=== PATIENT | female | born 1930 | race Caucasian/White ===

== ENCOUNTER 2020-01-15 13:32 | Inpatient (IN) | payer OTHER, BC ==
[~2020-01-15] VITALS: Ht 157.5 cm; Wt 84.0 kg
[~2020-01-15 13:32] MED LIST: ADVAIR 100/501 EA INH; AMLODIPINE BES2.5 MG PO; BLOOD PRESSURE; CITALOPRAM HYDR40 MG PO; DIOVAN80 M1 PO; GABAPENTIN300 M1 PO; LOPRESSOR50 MG PO; PREDNISONE20 MG PO; [UNRECOGNIZED DRUG - OTHER] PO
[2020-01-15 13:57] VITALS: BP 159/105
[2020-01-15 14:32] LABS: BASO # 0.1 10*3/uL (0.0-0.1); BASO % 0.8 % (0.0-1.0); EOS # 0.1 10*3/uL (0.0-0.4); EOS % 0.4 % (1.0-4.0); HEMATOCRIT 43.4 % (37.0-47.0); LYMPH # 1.2 10*3/uL (1.3-4.4); LYMPH % 10.2 % (27.0-41.0); MEAN CELL VOLUME 91.4 fl (81.0-99.0); MEAN CORPUSCULAR HGB 29.9 pg (27.0-31.0); MEAN CORPUSCULAR HGB CONC 32.7 g/dl (33.0-37.0); MEAN PLATELET VOLUME 9.9 fl (9.6-12.3); MONO # 0.7 10*3/uL (0.1-1.0); MONO % 5.9 % (3.0-9.0); NEUT # 9.8 10*3/uL (2.3-7.9); NEUT % 82.2 % (47.0-73.0); PLATELET COUNT AUTOMATED 312 10*3/uL (130-400); RED BLOOD COUNT 4.75 10*6/uL (4.10-5.10); RED CELL DISTRI WIDTH 13.1 % (0-14.5); WHITE BLOOD COUNT 11.9 10*3/uL (4.8-10.8)
[2020-01-15 14:42] LABS: ACT PARTIAL THROMBO TIME 28.2 SECONDS (20.0-32.1)
[2020-01-15 14:51] LABS: ALBUMIN 3.5 gm/dl (3.1-4.5); CREATININE 1.23 mg/dL (0.55-1.02); POTASSIUM 3.5 mmol/L (3.5-5.1); TOTAL PROTEIN 7.8 gm/dL (6.4-8.2)
[2020-01-15 15:10] LABS: BILIRUBIN NEGATIVE (NEGATIVE); BLOOD 3+ (NEGATIVE); CLARITY SL CLOUDY (CLEAR); COLOR YELLOW (YELLOW); GLUCOSE NEGATIVE (NEGATIVE); KETONE 3+ (NEGATIVE); LEUKO ESTERASE NEGATIVE (NEGATIVE); NITRITE NEGATIVE (NEGATIVE); UROBILINOGEN 0.2 E.U./dl (0.2-1.0)
[2020-01-15 15:20] LABS: BACTERIA 2+; MUCOUS TRACE
[2020-01-15 16:46] VITALS: BP 163/79
[2020-01-15 17:52] VITALS: BP 147/105
--- NOTE | 2020-01-15 17:52 | NUR ---
SPOKE WITH PTS DAUGHTER RACHEL TWICE TO GIVE HER UPDATES.PT IS ON PHONE WITH HER NOW.AWAITING CT RESULTS.---ANKIT RUIZ RN
--- NOTE | 2020-01-15 17:57 | NUR ---
PT LEIF SEAY PHONE NUMBER
[2020-01-15 18:32] VITALS: BP 139/88
--- NOTE | 2020-01-15 18:32 | NUR ---
PT RESTING QUIETLY--ANKIT RUIZ RN
[2020-01-15 19:53] VITALS: BP 158/96
--- NOTE | 2020-01-15 19:53 | NUR ---
A 89, admitted to 5E, under the services of AFSHAN Walker DO with a diagnosis of NEW ONSET AFIB,RECURRENT HERNIA. Chief complaint is ABDOMINAL PAIN. Patient arrived via bed from ER. Monitor applied. Initial assessment completed. Vital signs taken and recorded. DR. HAYES notified of admission to the unit. Orders received. See assessment for past medical history, medications and allergies. Patient and/or family oriented to [facility]. visitation policy reviewed. Clothing/patient valuable form completed. EMILY STALLINGS RN
[2020-01-15] MEDS ORDERED: COZAAR50 M1 PO (20:04)
[2020-01-15] MEDS ORDERED: WIXELA 100-501 EACH INH (20:05)
[2020-01-15] MEDS ORDERED: PROVENTIL HFA6.7 GM INH (20:06)
--- NOTE | 2020-01-15 20:07 | NUR ---
MED REC UPDATED PER PT'S MEDICATIONS SHE BROUGHT FROM HOME.
--- NOTE | 2020-01-15 20:34 | NUR ---
DR. HARRISON NOTIFIED AT THIS TIME OF CONSULT STATED THAT HE HAD BEEN NOTIFIED BY ER AND THAT HE WOULD SEE HER IN THE MORNING.
--- NOTE | 2020-01-15 21:36 | NUR ---
DR. AQUINO'S ANSWERING SERVICE NOTIFIED AT THIS TIME OF CONSULT.
--- NOTE | 2020-01-15 22:26 | NUR ---
PATIENT DAUGHTER RACHEL CALLED AT THIS TIME AND UPDATED ON PATIENT CONDITION AND PHYSICIAN CONSULTS. ALL QUESTIONS ANSWERED TO HER SATISFACTION.
[2020-01-16] VITALS (13 sets, daily range): BP systolic 129–165; BP diastolic 61–125
--- NOTE | 2020-01-16 02:21 | NUR ---
24 HOUR CHART CHECK COMPLETE
--- NOTE | 2020-01-16 05:15 | NUR ---
ORDERED IV ANTIBIOTIC STARTED AT THIS TIME INLINE WITH RUNNING IV FLUIDS. PATIENT RESTING IN BED IN A POSITION OF COMFORT, WITH EYES CLOSED AT THIS TIME AND RESPIRATIONS ARE EASY AND NON-LABORED. CALL LIGHT WITHIN REACH, WILL CONTINUE TO MONITOR.
[2020-01-16 06:14] LABS: BASO # 0.1 10*3/uL (0.0-0.1); BASO % 0.5 % (0.0-1.0); EOS % 0.1 % (1.0-4.0); HEMATOCRIT 39.1 % (37.0-47.0); LYMPH # 1.3 10*3/uL (1.3-4.4); LYMPH % 11.5 % (27.0-41.0); MEAN CELL VOLUME 89.9 fl (81.0-99.0); MEAN CORPUSCULAR HGB 29.7 pg (27.0-31.0); MEAN PLATELET VOLUME 10.5 fl (9.6-12.3); MONO # 0.6 10*3/uL (0.1-1.0); MONO % 5.3 % (3.0-9.0); NEUT # 9.6 10*3/uL (2.3-7.9); NEUT % 81.9 % (47.0-73.0); PLATELET COUNT AUTOMATED 292 10*3/uL (130-400); RED BLOOD COUNT 4.35 10*6/uL (4.10-5.10); WHITE BLOOD COUNT 11.7 10*3/uL (4.8-10.8)
[2020-01-16 06:23] LABS: BUN 19 mg/dl (7-24); CHLORIDE 106 mmol/L (98-107); CHOLESTEROL 157 mg/dL (<200); CREATININE 0.96 mg/dL (0.55-1.02); POTASSIUM 2.9 mmol/L (3.5-5.1); SODIUM 140 mmol/L (136-145); TRIGLYCERIDES 68 mg/dl (<150); VLDL CHOLESTEROL 14 mg/dL (6-40)
[2020-01-16 06:33] LABS: HDL CHOLESTEROL 36 mg/dl (40-60); LDL CHOLESTEROL 107 mg/dL (9-159)
[2020-01-16 07:20] LABS: VITAMIN D, 25-HYDROXY 26.7 ng/mL (30-100)
--- NOTE | 2020-01-16 08:34 | NUR ---
PHYSICAL THERAPY Screen received pt admitted from home with Afib w RVR, abdominal pain with recurrent abdominal hernia with obstruction. Pt currently has surgical consult. Please consult PT as medically appropriate pending surgical input and if pt has a decline in functional status. Lmaar Tapia PT
--- NOTE | 2020-01-16 08:34 | NUR ---
Nursing screen received and chart reviewed. Patient admitted for abdominal pain, new onset A-fib, and recurrent hernia. If patient has a decline in ADLs, transfers, or mobility, please send OT orders. Thank you. Margaret Lewis OTR/L
--- NOTE | 2020-01-16 10:22 | NUR ---
PT OFF FLOOR TO SURGERY. PT'S SON AND DAUGHTER AWARE OF SURGICAL PLAN.
--- NOTE | 2020-01-16 12:14 | NUR ---
Cigar Maker in to talk to patient. Patient states lives at HOME with DAUGHTER. There are FEW steps in the home. Physician: LORRAINE [facility]acy: [facility] Home health services: NONE Patient's level of ADLs: INDEPENDENT Patient has working utilities: YES DME: [facility] Follow-up physician's appointment after d/c: WILL BE MADE BY [facility] NURSE DIRECTOR ON DISCHARGE Does patient want to access PORTAL?: NO Discharge plan PT LIVES AT HOME WITH HER DAUGHTER. TALKED WITH PT ABOUT SNF OR HOME HEALTH ON DISCHARGE. PT IS HAVING SURGERY TODAY AND WANTS TO WAIT AND SEE IF SHE WILL NEED ANYTHING ON DISCHARGE. WILL REVISIT AFTER SURGERY. STATES HER DAUGHTER WILL TAKE HER HOME. WILL CONTINUE TO FOLLOW.. VIKY HARRIS
--- NOTE | 2020-01-16 13:55 | NUR ---
JAYCEE BUSH TO UNIT, REPORT RECEIVED FROM SURGERY.
--- NOTE | 2020-01-16 14:10 | NUR ---
PT. INSTRUCTED ON I/S FOR PURPOSE AND BENEFITS. PT. ACHIEVED A VOLUME OF 1500. Q 1 HOUR USE GIVEN AND TO TAKE HOME UPON DISCHARGE. PT HAS NO QUESTIONS AT THIS TIME.
--- NOTE | 2020-01-16 20:15 | NUR ---
PATIENT ASSESSMENT COMPLETED AT THIS TIME WITHOUT INCIDENT, PATIENT DENIES ANY CHEST PAIN/PRESSURE, SHORTNESS OF BREATH, OR OTHER DISTRESS AT THIS TIME. PATIENT REMAINS ON NC 2LPM AT THIS TIME FOLLOWING SURGERY EARLIER TODAY. INCENTIVE SPIROMETER EXPLAINED TO PATIENT AND SHE DEMONSTRATED USE X10 BREATHS FOR 500-750ML, WITH SOME COACHING. LAPROSCOPIC SITES REMAIN INTACT AND WELL APPROXIMATED, PATIENT COMPLAINS OF SOME DISCOMFORT AT THE SITES BUT STATED "IT'S BETTER THAN IT WAS YESTERDAY". WHEN ASKED ABOUT PASSING FLATUS PATIENT STATED THAT SHE REALLY WASN'T PAYING ATTENTION BUT WOULD NOW AND LET THIS RN KNOW. A&O X3 AT THIS TIME, SEATED UP IN RECLINER, CALL LIGHT AT HER SIDE, WILL CONTIUE TO MONITOR.
--- NOTE | 2020-01-16 22:37 | NUR ---
24 HOUR CHART CHECK COMPLETE
[2020-01-17] VITALS: BP 138/67
--- NOTE | 2020-01-17 02:00 | NUR ---
NOTIFIED BY SENIOR RESEARCH EXECUTIVE OF PATIENT HEART RATE GOING OBI INTO THE 40'S AND LOW 34. DR. HAYES NOTIFIED, NO ORDERS RECEIVED AT THIS TIME
--- NOTE | 2020-01-17 03:10 | NUR ---
PATIENT RESTING IN BED IN A POSITION OF COMFORT AT THIS TIME WITH EYES CLOSED, RESPIRATIONS EASY AND NON-LABORED WITH NASAL CANNULA 3LPM IN USE. CALL LIGHT WITHIN REACH, WILL CONTINUE TO MONITOR.
[2020-01-17 06:04] LABS: CREATININE 1.48 mg/dL (0.55-1.02); POTASSIUM 3.8 mmol/L (3.5-5.1)
[2020-01-17 06:17] LABS: HEMATOCRIT 38.5 % (37.0-47.0); MEAN CELL VOLUME 92.1 fl (81.0-99.0); MEAN CORPUSCULAR HGB 29.4 pg (27.0-31.0); MEAN CORPUSCULAR HGB CONC 31.9 g/dl (33.0-37.0); MEAN PLATELET VOLUME 10.5 fl (9.6-12.3); PLATELET COUNT AUTOMATED 303 10*3/uL (130-400); RED BLOOD COUNT 4.18 10*6/uL (4.10-5.10); RED CELL DISTRI WIDTH 13.2 % (0-14.5); WHITE BLOOD COUNT 14.7 10*3/uL (4.8-10.8)
[2020-01-17 06:55] LABS: BURR CELLS FEW; OVALOCYTES FEW; PLATELET SUFFICIENCY NORMAL (NORMAL); TOTAL CELLS COUNTED 100 #CELLS
[2020-01-17 08:00] VITALS: BP 122/58
--- NOTE | 2020-01-17 08:30 | NUR ---
Patient resting quietly with no c/o discomfort. Respirations easy and regular. Vital signs stable. No overt distress. MARIANELA JASSO R
--- NOTE | 2020-01-17 08:31 | NUR ---
DR HARRISON IN TO SEE PT. LAP SITES DRY AND INTACT, OPEN TO AIR.
--- NOTE | 2020-01-17 09:43 | NUR ---
Occupational Therapy evaluation completed on five with full evaluation to follow. Recommend occupational therapy per plan of care and home with HH SN, PT, and OT with family supervision assist upon discharge. Thank you for this referral. Margaret Lewis OTR/L
--- NOTE | 2020-01-17 09:43 | NUR ---
PHYSICAL THERAPY Physical Therapy evaluation completed on 5E with full evaluation to follow. Low complexity PT evaluation per chart review and evaluation, [id number]. Recommend physical therapy per plan of care and Home health upon discharge. Thank you for this referral. Yumiko Myles,PT,DPT
--- NOTE | 2020-01-17 09:52 | NUR ---
DR AQUINO ON UNIT TO SEE PT, NOTIFIED OF HR OF 34 AND SHORT EPISODE OF HR IN 40'S LASTNIGHT.
--- NOTE | 2020-01-17 11:57 | NUR ---
PT STATES SHE IS FEELING GOOD AND WILL RETURN TO HOME WITH HER DAUGHTER ON DISCHARGE. DENIES HOME HEALTH AT THIS TIME.
[2020-01-17 12:00] VITALS: BP 100/42
--- NOTE | 2020-01-17 14:00 | NUR ---
DULCOLAX EFFECTIVE, PT STATES SHE HAD A LARGE BM.
[2020-01-17 16:00] VITALS: BP 100/46
--- NOTE | 2020-01-17 17:30 | NUR ---
Patient resting quietly with no c/o discomfort. Respirations easy and regular. Vital signs stable. No overt distress. MARIANELA JASSO R
[2020-01-17 20:00] VITALS: BP 109/49
[2020-01-18] VITALS: BP 116/58
[2020-01-18 06:23] LABS: BASO # 0.1 10*3/uL (0.0-0.1); BASO % 0.8 % (0.0-1.0); EOS % 0.4 % (1.0-4.0); HEMATOCRIT 35.6 % (37.0-47.0); LYMPH # 2.8 10*3/uL (1.3-4.4); LYMPH % 26.1 % (27.0-41.0); MEAN CELL VOLUME 93.2 fl (81.0-99.0); MEAN CORPUSCULAR HGB 29.3 pg (27.0-31.0); MEAN CORPUSCULAR HGB CONC 31.5 g/dl (33.0-37.0); MEAN PLATELET VOLUME 10.6 fl (9.6-12.3); MONO # 1.5 10*3/uL (0.1-1.0); MONO % 13.6 % (3.0-9.0); NEUT # 6.2 10*3/uL (2.3-7.9); NEUT % 58.3 % (47.0-73.0); PLATELET COUNT AUTOMATED 277 10*3/uL (130-400); RED BLOOD COUNT 3.82 10*6/uL (4.10-5.10); RED CELL DISTRI WIDTH 13.7 % (0-14.5); WHITE BLOOD COUNT 10.7 10*3/uL (4.8-10.8)
[2020-01-18 06:51] LABS: CREATININE 1.79 mg/dL (0.55-1.02); POTASSIUM 3.8 mmol/L (3.5-5.1)
[2020-01-18 08:00] VITALS: BP 120/58
--- NOTE | 2020-01-18 08:30 | NUR ---
Screw Remover in to see patient. She is sitting up in her bedside chair. No new needs or request at this time. Discussed short term SNF and home health care services and she denies a need for either. When medically stable she will be discharged to home.
--- NOTE | 2020-01-18 09:40 | NUR ---
PHYSICAL THERAPY Patient seen this am 1:1 for therapy visit and was sitting up in bedside chair upon therapist arrival. Patient identified by name / and reports abdominal muscle discomfort, secondary to c/o of increased constipation yesterday. OT triage assistant was also present this session for observation only as patient transfers sit to stand from low chair surface SBA. Patient ambulates without AD, SBA, 75'x 1, demonstrating initial "waddling" gait pattern. Patient received v/c to improve B arm swing to promote increased stride and now demonstrated smoother, safer gait pattern. Patient returned to bedside chair with mild fatigue and was very cautious during all 90/180 turns. Patient remained in chair with call light, tray table and telephone. Will continue per POC as tolerated, total treatment time 15 minutes. Willem Bravo, FRUIT SHIPPER
--- NOTE | 2020-01-18 09:44 | NUR ---
OT NOTE Pt was seen this A.M. 1:1 for 24 minute OT session. Upon arrival pt was sitting upright in the recliner. Pt identified by name and and had complaints of lower abdominal "discomfort" with activity. While seated pt doffed and donned B socks PR while bringing her leg up over her knee. Sit to stand then completed from chair level with SBA followed by functional mobility to the bathroom with SBA for safety. There she transferred on/off standard commode with SBA and use of grab bar for UE support. Clothing management completed with supervision. Pt then stood sink side while washing her hands with SBA. Functional mobility was then completed back to the recliner. Challenged pt's dynamic standing balance while weight shifting, crossing midline, and reaching over all planes. Pt was able to maintain G- standing balance throughout. Pt was left sitting upright in the recliner with call light in hand, tray table in place, and phone in reach. Continue with rec D/C plan to home. CHIVO Perkins/Juana
[2020-01-18 12:00] VITALS: BP 103/55
[2020-01-18] MEDS ORDERED: XARE15TA PO (13:08)
--- NOTE | 2020-01-18 15:22 | NUR ---
Discharge instructions reviewed with patient/family. Patient receptive and verbalizes understanding. Follow-up care arranged. Written instructions given to patient/family. JASON FAITH
--- NOTE | 2020-01-19 07:46 | NUR ---
OCCUPATIONAL THERAPY CO-SIGN I approve of the Occupational Therapy notes written above. DAGOBERTO RODRIGUES, OTR/L
--- NOTE | 2020-01-19 08:05 | NUR ---
PHYSICAL THERAPY CO-SIGN I approve of the Physical Therapy notes written above. Lamar Tapia PT
== END 2020-01-18 15:22 | disposition home or self-care (01) | DRG 353 ==
LOC: ED 13:32 → 5E 18:49 → EDHOLD 18:49 → 5E 19:00
PROVIDERS: Internal Medicine; Nurse Practitioner Family; Surgery; ADMIT Family Medicine
PROC: 0WUF4JZ Supplement Abdominal Wall with Synthetic Substitute, Percutaneous Endoscopic Approach (ICD-10-PCS; principal; 2020-01-16)
DX: K43.0 Incisional hernia with obstruction, without gangrene (principal); N17.0 Acute kidney failure with tubular necrosis; K56.609 Unspecified intestinal obstruction, unspecified as to partial versus complete obstruction; I13.0 Hypertensive heart and chronic kidney disease with heart failure and stage 1 through stage 4 chronic kidney disease, or unspecified chronic kidney disease; I48.91 Unspecified atrial fibrillation; N18.3 Chronic kidney disease, stage 3 (moderate); E11.22 Type 2 diabetes mellitus with diabetic chronic kidney disease; E11.65 Type 2 diabetes mellitus with hyperglycemia; I50.9 Heart failure, unspecified; J45.20 Mild intermittent asthma, uncomplicated; E66.09 Other obesity due to excess calories; R82.71 Bacteriuria; E87.6 Hypokalemia; E83.51 Hypocalcemia; E78.5 Hyperlipidemia, unspecified; J45.909 Unspecified asthma, uncomplicated; Z68.30 Body mass index [BMI] 30.0-30.9, adult; Z88.0 Allergy status to penicillin; Z88.2 Allergy status to sulfonamides; Z91.041 Radiographic dye allergy status; Z79.899 Other long term (current) drug therapy; Z80.9 Family history of malignant neoplasm, unspecified